=== PATIENT | female | born 1965 | race Two or more races ===

== ENCOUNTER 2021-08-12 00:35 | Inpatient (IN) | payer MEDICAID, OTHER ==
[~2021-08-12] VITALS: Ht 170.2 cm; Wt 76.2 kg
[2021-08-12 01:35] LABS: Albumin 3.7 g/dL (3.4-5.0); Basophils # (auto) 0 10 ^3/uL (0-0.2); Basophils % (auto) 0.2 % (0.0-2.0); Calcium 8.5 mg/dL (8.5-10.1); Eosinophils # (auto) 0 10 ^3/uL (0-0.8); Eosinophils % (auto) 0.6 % (0.0-7.0); Hematocrit 41.2 % (36.0-46.0); Hemoglobin 13.5 g/dL (12.2-16.2); Lymphocytes # (auto) 0.6 10 ^3/uL (0.4-5.4); Mean Corpuscular Hemoglobin 29.2 pg (28.0-32.0); Mean Corpuscular Hgb Conc. 32.9 g/dL (32.0-36.0); Mean Corpuscular Volume 88.9 fL (80.0-100.0); Monocytes # (auto) 0.3 10 ^3/uL (0-1.3); Monocytes % (auto) 6.6 % (0.0-12.0); Neutrophils # (auto) 3.6 10 ^3/uL (1.6-8.6); Neutrophils % (auto) 78.6 % (37.0-80.0); Nucleated Red Blood Cells % 0.2 %; Potassium 3.7 mmol/L (3.5-5.1); Red Blood Cells 4.63 10^6/uL (4.0-5.20); White Blood Cell 4.5 10^3/uL (4.4-10.8)
[2021-08-12 01:40] LABS: BUN/Creatinine Ratio 10.1; Bilirubin, Total 0.4 mg/dL (0.2-1.0); Total Protein 6.9 g/dL (6.4-8.2)
[2021-08-12] MEDS ORDERED: ONDANSETRON HCL 4 MG/2 ML VIAL IV PRN (06:00)
[2021-08-12] MEDS ORDERED: MORPHINE SULFATE 4 MG/ML SYR/VIAL IV PRN (06:00)
[2021-08-12] MEDS ORDERED: ACETAMINOPHEN 325 MG TAB PO PRN (06:00)
[2021-08-12] MEDS ORDERED: SODIUM CHLOR 0.9% PF (SALINE LOCK) 10ML VIAL/SYR IV SCH (06:00)
[2021-08-12] MEDS ORDERED: DOCUSATE SOD 100 MG CAP PO PRN (06:00)
[2021-08-12] MEDS ORDERED: HYDROcodone-ACET 5/325MG TAB PO PRN (06:00)
[2021-08-12] MEDS ORDERED: ALBUTEROL SULF HFA 90MCG INH 200DOSE IN PRN (06:45)
[2021-08-12] MEDS ORDERED: MORPHINE SULFATE INJECTION 2 MG/ML SYRG IV PRN ×2 (06:45→07:30)
[2021-08-12] MEDS ORDERED: NITROGLYCERIN 0.4 MG SL TAB SL PRN (06:45)
[2021-08-12 07:03] LABS: Basophils # (auto) 0 10 ^3/uL (0-0.2); Basophils % (auto) 0.4 % (0.0-2.0); Eosinophils # (auto) 0 10 ^3/uL (0-0.8); Eosinophils % (auto) 0.4 % (0.0-7.0); Hematocrit 39.2 % (36.0-46.0); Hemoglobin 13.2 g/dL (12.2-16.2); Lymphocytes # (auto) 0.7 10 ^3/uL (0.4-5.4); Lymphocytes % (auto) 23.4 % (10.0-50.0); Mean Corpuscular Hgb Conc. 33.7 g/dL (32.0-36.0); Mean Corpuscular Volume 89.1 fL (80.0-100.0); Monocytes # (auto) 0.3 10 ^3/uL (0-1.3); Monocytes % (auto) 9.2 % (0.0-12.0); Neutrophils % (auto) 66.6 % (37.0-80.0); Nucleated Red Blood Cells % 0.2 %; Red Cell Distribution Width 13.3 % (11.8-14.3)
[2021-08-12 07:15] LABS: Albumin 3.7 g/dL (3.4-5.0); Calcium 8.4 mg/dL (8.5-10.1)
[2021-08-12 07:21] LABS: BUN/Creatinine Ratio 9.8; Bilirubin, Total 0.3 mg/dL (0.2-1.0); Total Protein 6.8 g/dL (6.4-8.2)
[2021-08-12 09:30] VITALS: BP 132/70
[2021-08-12] MEDS ORDERED: ENOXAPARIN SOD 40 MG/0.4 ML SYRINGE SC SCH (10:00)
[2021-08-12] MEDS ORDERED: BUDESONIDE (INHALATION) 180 MCG IH IN SCH (10:00)
[2021-08-12] MEDS ORDERED: MULTIPLE VITAMIN TAB PO SCH (10:00)
[2021-08-12] MEDS ORDERED: ASPirin 81 mg TAB PO SCH (10:00)
[2021-08-12] MEDS ORDERED: FAMOTIDINE (10MG/ML) 2ML VL IV SCH (10:00)
[2021-08-12] MEDS ORDERED: ZINC SULFATE 220mg CAP or TAB PO SCH (10:00)
[2021-08-12] MEDS ORDERED: ASCORBIC ACID 500 MG TAB PO SCH (10:00)
[2021-08-12] MEDS ORDERED: CHOLECALCIFEROL (VITD3) 1,000UNIT=25mCg TAB PO SCH (10:00)
[2021-08-12] MEDS ORDERED: AZITHROMYCIN 500MG/ 250ML 250 ML IV SCH (10:00)
[2021-08-12] MEDS ORDERED: LOP2C PO (10:52)
[2021-08-12] MEDS ORDERED: ACET-1156 PO (10:52)
[2021-08-12] MEDS ORDERED: CHOL20007 PO (10:52)
[2021-08-12] MEDS ORDERED: ASCO500T11 PO (10:52)
[2021-08-12] MEDS ORDERED: CYAN1TAB11 PO (10:52)
[2021-08-12 12:29] VITALS: BP 130/72
[2021-08-12] MEDS ORDERED: AZITTAB PO (16:25)
[2021-08-12] MEDS ORDERED: ALBUAER3 IN (16:25)
[2021-08-12 16:51] VITALS: BP 130/72
[2021-08-12 17:00] VITALS: BP 132/72
== END 2021-08-12 18:00 | disposition home or self-care (01) | DRG 137 ==
LOC: ER 00:35 → OVERFLOW 06:41 → EAST 10:16
PROVIDERS: ADMIT Nurse Practitioner Family; ATTEND Internal Medicine
DX: U07.1 COVID-19 (principal); J12.82 Pneumonia due to coronavirus disease 2019; R07.89 Other chest pain; Z88.8 Allergy status to other drugs, medicaments and biological substances
CPT/HCPCS: 36415; 71045; 80053; 80061; 83036; 83735; 83880; 84484; 85025; 87426; 93005; 96365; 96375; G0378; J2405; J3490

== ENCOUNTER 2021-08-13 18:19 | Inpatient (IN) | payer MEDICAID ==
[~2021-08-13] VITALS: Ht 170.2 cm; Wt 79.5 kg
[~2021-08-13 18:19] MED LIST: ALBUAER3 IN; ASCO500T11 PO; AZITTAB PO; CHOL20007 PO; CYAN1TAB11 PO; LOP2C PO
[2021-08-13] MEDS ORDERED: SODIUM CHLORIDE 0.9% 1,000 ML IV ONE (19:00)
[2021-08-13] MEDS ORDERED: ONDANSETRON HCL 4 MG/2 ML VIAL IV ONE (19:00)
[2021-08-13 20:12] LABS: Basophils # (auto) 0.1 10 ^3/uL (0-0.2); Basophils % (auto) 1.2 % (0.0-2.0); Eosinophils # (auto) 0 10 ^3/uL (0-0.8); Eosinophils % (auto) 0.4 % (0.0-7.0); Hematocrit 41.8 % (36.0-46.0); Lymphocytes # (auto) 0.4 10 ^3/uL (0.4-5.4); Lymphocytes % (auto) 8.2 % (10.0-50.0); Mean Corpuscular Hemoglobin 29.8 pg (28.0-32.0); Mean Corpuscular Hgb Conc. 33.4 g/dL (32.0-36.0); Mean Corpuscular Volume 89.2 fL (80.0-100.0); Monocytes # (auto) 0.3 10 ^3/uL (0-1.3); Monocytes % (auto) 5.7 % (0.0-12.0); Neutrophils # (auto) 4.2 10 ^3/uL (1.6-8.6); Neutrophils % (auto) 84.5 % (37.0-80.0); Nucleated Red Blood Cells % 0.1 %; Red Blood Cells 4.69 10^6/uL (4.0-5.20); Red Cell Distribution Width 13.3 % (11.8-14.3); White Blood Cell 4.9 10^3/uL (4.4-10.8)
[2021-08-13 20:29] LABS: Albumin 3.7 g/dL (3.4-5.0); Calcium 8.7 mg/dL (8.5-10.1); Potassium 3.8 mmol/L (3.5-5.1)
[2021-08-13 20:35] LABS: BUN/Creatinine Ratio 8.8; Bilirubin, Total 0.4 mg/dL (0.2-1.0); CRP High Sensitivity 0.51 mg/dL (< 0.3); Total Protein 7.2 g/dL (6.4-8.2)
[2021-08-13 22:51] LABS: Urine Bacteria NONE SEEN /hpf (None Seen); Urine Blood TRACE /uL (Negative); Urine Mucus FEW (None Seen); Urine Specific Gravity 1.024 (1.001-1.035); Urine WBC 1 /hpf (0 - 5)
[2021-08-14] MEDS ORDERED: METOCLOPRAMIDE HCL 5MG/ml INJ 2ml VIAL IV ONE (00:30)
[2021-08-14] MEDS ORDERED: ACETAMINOPHEN 325 MG TAB PO ONE (01:45)
[2021-08-14] MEDS ORDERED: DOCUSATE SOD 100 MG CAP PO PRN (02:15)
[2021-08-14] MEDS ORDERED: MORPHINE SULFATE 4 MG/ML SYR/VIAL IV PRN (02:15)
[2021-08-14] MEDS ORDERED: ACETAMINOPHEN 325 MG TAB PO PRN (02:15)
[2021-08-14] MEDS ORDERED: AZITHROMYCIN 500MG/ 250ML 250 ML IV ONE (02:15)
[2021-08-14] MEDS ORDERED: cefTRIAXone 1GM/50ML D5W 50 ML IV ONE (02:15)
[2021-08-14] MEDS ORDERED: NITROGLYCERIN 0.4 MG SL TAB SL PRN (02:45)
[2021-08-14] MEDS ORDERED: MORPHINE SULFATE INJECTION 2 MG/ML SYRG IV PRN (02:45)
[2021-08-14] MEDS: DexAMETHasone SOD PHOS 10MG/1ML VIAL INJ IV SCH (03:34)
[2021-08-14 03:59] LABS: Albumin 3.4 g/dL (3.4-5.0); Potassium 3.6 mmol/L (3.5-5.1)
[2021-08-14 04:01] LABS: BUN/Creatinine Ratio 8.7
[2021-08-14 04:04] LABS: Bilirubin, Total 0.4 mg/dL (0.2-1.0); Total Protein 6.4 g/dL (6.4-8.2)
[2021-08-14] MEDS: D5W/SOD CHLO 0.9% 1,000 ML IV SCH ×2 (05:30→18:32)
[2021-08-14 07:01] LABS: Basophils # (auto) 0 10 ^3/uL (0-0.2); Basophils % (auto) 0.1 % (0.0-2.0); Eosinophils # (auto) 0 10 ^3/uL (0-0.8); Hematocrit 37.9 % (36.0-46.0); Hemoglobin 12.6 g/dL (12.2-16.2); Lymphocytes # (auto) 0.5 10 ^3/uL (0.4-5.4); Lymphocytes % (auto) 11.4 % (10.0-50.0); Mean Corpuscular Hemoglobin 29.7 pg (28.0-32.0); Mean Corpuscular Hgb Conc. 33.2 g/dL (32.0-36.0); Mean Corpuscular Volume 89.3 fL (80.0-100.0); Monocytes # (auto) 0.2 10 ^3/uL (0-1.3); Monocytes % (auto) 3.8 % (0.0-12.0); Neutrophils # (auto) 3.6 10 ^3/uL (1.6-8.6); Neutrophils % (auto) 84.7 % (37.0-80.0); Nucleated Red Blood Cells % 0.1 %; Red Blood Cells 4.24 10^6/uL (4.0-5.20); Red Cell Distribution Width 12.8 % (11.8-14.3); White Blood Cell 4.3 10^3/uL (4.4-10.8)
[2021-08-14] MEDS: MULTIPLE VITAMIN TAB PO SCH (09:38)
[2021-08-14] MEDS: CHOLECALCIFEROL (VITD3) 2,000 UNIT CAP/TAB PO SCH (09:38)
[2021-08-14] MEDS: FAMOTIDINE (10MG/ML) 2ML VL IV SCH (09:38)
[2021-08-14] MEDS: ENOXAPARIN SOD 40 MG/0.4 ML SYRINGE SC SCH (09:38)
[2021-08-14] MEDS: ZINC SULFATE 220mg CAP or TAB PO SCH (09:38)
[2021-08-14] MEDS: ASCORBIC ACID 500 MG TAB PO SCH ×2 (09:38→21:19)
[2021-08-14] MEDS: BUDESONIDE (INHALATION) 180 MCG IH IN SCH ×2 (10:00→22:00)
[2021-08-14] MEDS ORDERED: PANTOPRAZOLE 40 MG/10 ML VIAL INJ IV ONE (11:15)
[2021-08-14 17:00] VITALS: BP 122/81
[2021-08-14 17:27] VITALS: BP 122/81
[2021-08-14] MEDS: ONDANSETRON HCL 4 MG/2 ML VIAL IV PRN (18:49)
[2021-08-14 22:00] VITALS: BP 127/80
[2021-08-15] MEDS: D5W/SOD CHLO 0.9% 1,000 ML IV SCH ×2 (00:11→20:45)
[2021-08-15 05:00] VITALS: BP 124/71
[2021-08-15 07:09] LABS: Basophils # (auto) 0 10 ^3/uL (0-0.2); Basophils % (auto) 0.2 % (0.0-2.0); Eosinophils # (auto) 0 10 ^3/uL (0-0.8); Eosinophils % (auto) 0.1 % (0.0-7.0); Hemoglobin 12.3 g/dL (12.2-16.2); Lymphocytes # (auto) 0.7 10 ^3/uL (0.4-5.4); Lymphocytes % (auto) 14.3 % (10.0-50.0); Mean Corpuscular Hemoglobin 29.7 pg (28.0-32.0); Mean Corpuscular Hgb Conc. 33.2 g/dL (32.0-36.0); Mean Corpuscular Volume 89.6 fL (80.0-100.0); Monocytes # (auto) 0.4 10 ^3/uL (0-1.3); Monocytes % (auto) 7.9 % (0.0-12.0); Neutrophils % (auto) 77.5 % (37.0-80.0); Nucleated Red Blood Cells % 0.1 %; Red Blood Cells 4.12 10^6/uL (4.0-5.20); Red Cell Distribution Width 13.1 % (11.8-14.3); White Blood Cell 5.2 10^3/uL (4.4-10.8)
[2021-08-15 07:23] LABS: Potassium 3.1 mmol/L (3.5-5.1)
[2021-08-15 07:32] LABS: BUN/Creatinine Ratio 11.4; Bilirubin, Total 0.2 mg/dL (0.2-1.0); Calcium 8.2 mg/dL (8.5-10.1); Total Protein 5.8 g/dL (6.4-8.2)
[2021-08-15 09:00] VITALS: BP 113/67
[2021-08-15] MEDS: cefTRIAXone 1GM/50ML D5W 50 ML IV SCH ×2 (09:00→10:28)
[2021-08-15] MEDS: DexAMETHasone SOD PHOS 10MG/1ML VIAL INJ IV SCH (10:15)
[2021-08-15] MEDS: FAMOTIDINE (10MG/ML) 2ML VL IV SCH ×2 (10:16→22:14)
[2021-08-15] MEDS: PANTOPRAZOLE 40 MG/10 ML VIAL INJ IV SCH (10:16)
[2021-08-15] MEDS: MULTIPLE VITAMIN TAB PO SCH (10:17)
[2021-08-15] MEDS: ASCORBIC ACID 500 MG TAB PO SCH ×2 (10:17→22:14)
[2021-08-15] MEDS: CHOLECALCIFEROL (VITD3) 2,000 UNIT CAP/TAB PO SCH (10:18)
[2021-08-15] MEDS: ENOXAPARIN SOD 40 MG/0.4 ML SYRINGE SC SCH ×2 (10:19→22:13)
[2021-08-15] MEDS: ZINC SULFATE 220mg CAP or TAB PO SCH (10:23)
[2021-08-15] MEDS: AZITHROMYCIN 500MG/ 250ML 250 ML IV SCH (11:06)
[2021-08-15] MEDS: BUDESONIDE (INHALATION) 180 MCG IH IN SCH ×2 (11:25→19:33)
[2021-08-15] MEDS: ALBUTEROL SULF HFA 90MCG INH 200DOSE IN PRN ×2 (11:25→19:33)
[2021-08-15] MEDS ORDERED: POTASSIUM CHL 20 Meq TABLET PO ONE (12:45)
[2021-08-15 13:00] VITALS: BP 111/72
[2021-08-15] MEDS: ONDANSETRON HCL 4 MG/2 ML VIAL IV PRN (14:00)
[2021-08-15 17:00] VITALS: BP 119/72
[2021-08-15 22:00] VITALS: BP 117/71
[2021-08-15] MEDS ORDERED: POTASSIUM CHL 20 Meq TABLET PO SCH (22:00)
[2021-08-16 05:00] VITALS: BP 130/71
[2021-08-16] MEDS: BUDESONIDE (INHALATION) 180 MCG IH IN SCH (06:11)
[2021-08-16] MEDS: ALBUTEROL SULF HFA 90MCG INH 200DOSE IN PRN (06:11)
[2021-08-16] MEDS: AZITHROMYCIN 500MG/ 250ML 250 ML IV SCH (09:44)
[2021-08-16] MEDS: PANTOPRAZOLE 40 MG/10 ML VIAL INJ IV SCH (09:46)
[2021-08-16] MEDS: FAMOTIDINE (10MG/ML) 2ML VL IV SCH (09:46)
[2021-08-16] MEDS: DexAMETHasone SOD PHOS 10MG/1ML VIAL INJ IV SCH (09:46)
[2021-08-16] MEDS: ZINC SULFATE 220mg CAP or TAB PO SCH (09:48)
[2021-08-16] MEDS: CHOLECALCIFEROL (VITD3) 2,000 UNIT CAP/TAB PO SCH (09:48)
[2021-08-16] MEDS: MULTIPLE VITAMIN TAB PO SCH (09:49)
[2021-08-16] MEDS: ENOXAPARIN SOD 40 MG/0.4 ML SYRINGE SC SCH (09:49)
[2021-08-16] MEDS: ASCORBIC ACID 500 MG TAB PO SCH (09:49)
[2021-08-16] MEDS ORDERED: THIAMINE HCL 100 MG TAB PO SCH (10:00)
[2021-08-16] MEDS ORDERED: cefTRIAXone 1GM/50ML D5W 50 ML IV SCH (10:00)
[2021-08-16] MEDS ORDERED: AZIT500T66 PO (11:24)
[2021-08-16] MEDS ORDERED: PRED20TA2 PO (11:24)
[2021-08-16] MEDS ORDERED: PANT40T PO (11:24)
[2021-08-16 13:00] VITALS: BP 128/70
== END 2021-08-16 16:00 | disposition home or self-care (01) | DRG 137 ==
LOC: ER 18:20 → OVERFLOW 08-14 02:43 → WEST WING 08-14 17:26
PROVIDERS: ADMIT Nurse Practitioner Family; ATTEND Family Medicine
DX: U07.1 COVID-19 (principal); J96.01 Acute respiratory failure with hypoxia; J12.82 Pneumonia due to coronavirus disease 2019; K76.0 Fatty (change of) liver, not elsewhere classified; E87.6 Hypokalemia; Z80.1 Family history of malignant neoplasm of trachea, bronchus and lung; R79.89 Other specified abnormal findings of blood chemistry; Z86.16 Personal history of COVID-19
CPT/HCPCS: 36415; 71045; 74176; 80053; 81001; 83605; 83690; 83735; 84484; 85025; 85379; 86141; 87081; 87426; 94640; 96361; 96374; 96375; C9113; G0378; J0696; J1100; J2405; J3490; J7042

== ENCOUNTER 2021-08-18 08:54 | Emergency (ER) | payer MEDICAID ==
[~2021-08-18] VITALS: Ht 170.2 cm; Wt 77.1 kg
[~2021-08-18 08:54] MED LIST changes: -ALBUAER3 IN; -ASCO500T11 PO; +AZIT500T66 PO; -AZITTAB PO; -CHOL20007 PO; -CYAN1TAB11 PO; -LOP2C PO; +PANT40T PO; +PRED20TA2 PO
[2021-08-18 11:19] VITALS: BP 122/71
[2021-08-18] MEDS ORDERED: FAMOTIDINE 20 MG TAB PO ONE (12:00)
[2021-08-18] MEDS ORDERED: ALUM & MAG HYDROX-SIMETH LIQ(MAALOX) 30 ML PO ONE (12:00)
[2021-08-18] MEDS ORDERED: ONDANSETRON ODT 4 MG TAB PO ONE (12:00)
[2021-08-18] MEDS ORDERED: LIDOCAINE VISCOUS 2% 15ML UD PO ONE (12:00)
== END 2021-08-18 13:20 | disposition home or self-care (01) ==
LOC: ER 08:54
DX: U09.9 Post COVID-19 condition, unspecified (principal); R63.0 Anorexia; Z68.26 Body mass index [BMI] 26.0-26.9, adult
CPT/HCPCS: 99284; Q0162

== ENCOUNTER 2022-10-20 09:16 | Emergency (ER) | payer MEDICAID ==
[~2022-10-20] VITALS: Ht 170.2 cm; Wt 76.1 kg
[2022-10-20 09:59] LABS: Urine Bacteria FEW /hpf (None Seen); Urine Blood Negative /uL (Negative); Urine Specific Gravity 1.002 (1.001-1.035); Urine WBC <1 /hpf (0 - 5)
[2022-10-20 10:23] LABS: Basophils # (auto) 0 10 ^3/uL (0-0.2); Basophils % (auto) 0.5 % (0.0-2.0); Eosinophils # (auto) 0.2 10 ^3/uL (0-0.8); Eosinophils % (auto) 2.4 % (0.0-7.0); Hematocrit 45.5 % (36.0-46.0); Hemoglobin 15.1 g/dL (12.2-16.2); Lymphocytes # (auto) 1.6 10 ^3/uL (0.4-5.4); Lymphocytes % (auto) 21.3 % (10.0-50.0); Mean Corpuscular Hemoglobin 29.8 pg (28.0-32.0); Mean Corpuscular Hgb Conc. 33.1 g/dL (32.0-36.0); Monocytes # (auto) 0.4 10 ^3/uL (0-1.3); Monocytes % (auto) 4.8 % (0.0-12.0); Neutrophils # (auto) 5.3 10 ^3/uL (1.6-8.6); Nucleated Red Blood Cells % 0.1 %; Red Blood Cells 5.05 10^6/uL (4.0-5.20); Red Cell Distribution Width 13.1 % (11.8-14.3); White Blood Cell 7.5 10^3/uL (4.4-10.8)
[2022-10-20 10:38] LABS: Albumin 4.2 g/dL (3.4-5.0); BUN/Creatinine Ratio 9.4 (10.0-20.0); Bilirubin, Total 0.4 mg/dL (0.2-1.0); Calcium 9.7 mg/dL (8.5-10.1); Total Protein 7.3 g/dL (6.4-8.2)
[2022-10-20 15:59] VITALS: BP 138/97
== END 2022-10-20 16:07 | disposition home or self-care (01) ==
LOC: ER 09:16
DX: M54.12 Radiculopathy, cervical region (principal); R07.89 Other chest pain; Z90.49 Acquired absence of other specified parts of digestive tract; Z90.710 Acquired absence of both cervix and uterus; Z79.2 Long term (current) use of antibiotics; Z79.899 Other long term (current) drug therapy; Z88.5 Allergy status to narcotic agent
CPT/HCPCS: 36415; 71045; 80053; 81001; 82962; 84484; 85025; 93005

== ENCOUNTER 2023-07-14 10:51 | Emergency (ER) | payer BC, MEDICAID ==
[~2023-07-14] VITALS: Ht 170.2 cm; Wt 71.4 kg
[2023-07-14 11:40] LABS: Basophils # (auto) 0 10 ^3/uL (0-0.2); Basophils % (auto) 0.1 % (0.0-2.0); Eosinophils # (auto) 0.1 10 ^3/uL (0-0.8); Eosinophils % (auto) 0.6 % (0.0-7.0); Hematocrit 45.6 % (36.0-46.0); Lymphocytes # (auto) 1.4 10 ^3/uL (0.4-5.4); Lymphocytes % (auto) 14.6 % (10.0-50.0); Mean Corpuscular Hemoglobin 29.5 pg (28.0-32.0); Mean Corpuscular Hgb Conc. 32.9 g/dL (32.0-36.0); Mean Corpuscular Volume 89.7 fL (80.0-100.0); Monocytes # (auto) 0.4 10 ^3/uL (0-1.3); Monocytes % (auto) 4.4 % (0.0-12.0); Neutrophils # (auto) 7.9 10 ^3/uL (1.6-8.6); Neutrophils % (auto) 80.3 % (37.0-80.0); Red Blood Cells 5.08 10^6/uL (4.0-5.20); Red Cell Distribution Width 13.2 % (11.8-14.3); White Blood Cell 9.9 10^3/uL (4.4-10.8)
[2023-07-14 12:00] LABS: Alanine Aminotransferase 22 U/L (7-40); Albumin 5.2 g/dL (3.2-4.8); Alkaline Phosphatase 97 U/L (46-116); Anion Gap 7 (5-15); Aspartate Aminotransferase 22 U/L (13-40); BUN/Creatinine Ratio 7.4 (10.0-20.0); Bilirubin, Direct 0.2 mg/dL (<0.3); Bilirubin, Total 0.8 mg/dL (0.2-1.0); Blood Urea Nitrogen 7 mg/dL (9-23); Calcium 10.4 mg/dL (8.5-10.1); Carbon Dioxide 28 mmol/L (20-30); Chloride 103 mmol/L (98-107); Glucose 99 mg/dL (74-106); Potassium 3.8 mmol/L (3.5-5.1); Sodium 138 mmol/L (136-145); Total Protein 7.6 g/dL (5.7-8.2)
[2023-07-14 12:46] LABS: Magnesium 2.1 mg/dL (1.6-2.6)
[2023-07-14 13:33] VITALS: BP 150/60; PULSE 85; RESP 19; TEMP 98.4; O2SAT 95
== END 2023-07-14 13:38 | disposition home or self-care (01) ==
LOC: ER 10:51
DX: M62.81 Muscle weakness (generalized) (principal); Z13.89 Encounter for screening for other disorder; Z98.890 Other specified postprocedural states; Z88.8 Allergy status to other drugs, medicaments and biological substances; Z79.899 Other long term (current) drug therapy
CPT/HCPCS: 36415; 80048; 80076; 82962; 83690; 83735; 85025; 93005

== ENCOUNTER 2025-06-25 04:38 | Emergency (ER) | payer BC, MEDICAID ==
[~2025-06-25] VITALS: Ht 170.2 cm; Wt 62.0 kg
--- NOTE | 2025-06-25 06:33 | ED.PDOC ---
Back pain HPI HPI Comments A 59 YEARS OLD FEMALE PRESENTS TO THE ED WITH COMPLAINT OF LOWER BACK PAIN. PT STATES SHE WAS BENDING OVER TO CLINICAL INVESTIGATOR SOMETHING 2 DAYS AGO. WHEN SHE GOT UP, SHE STARTED HAVING LOWER BACK PAIN WITH MUSCLE SPASM. LOWER BACK PAIN RADIATES TO BILATERAL LOWER LEGS WITH TINGLING SENSATION. PT DENIES FALL INJURY AND OTHER BODY INJURY. MOVEMENT AND PHYSICAL ACTIVITY INCREASES LOWER BACK PAIN. PATIENT DENIES FEVER, CHILLS, SHORTNESS OF BREATH, CHEST PAIN, ABDOMINAL PAIN, NAUSEA, VOMITING, HEADACHE, OR OTHER COMPLAINTS. NO OTHER SYMPTOMS OR MODIFYING FACTORS AT THIS TIME. PATIENT IS ALERT, ORIENTED X 4, AND HAS STEADY GAIT. Chief Complaint: Back Pain Time Seen by MD: 06:21 Primary Care Provider: UNKNOWN Reviewed Notes: Nurses Notes, Medications, Allergies Allergies: Coded Allergies: Hydrocodone (Verified Allergy, Mild, hives, 08/12/21) Home Meds Active Scripts Methocarbamol (Methocarbamol) 750 Mg Tab, 750 MG PO BID, #20 TAB Prov:MARKOS CARTY 06/25/25 Ibuprofen (Ibuprofen) 800 Mg Tab, 1 TAB PO TID, #30 TAB Prov:MARKOS CARTY 06/25/25 Pantoprazole Sodium Sesquihydr (Pantoprazole Sodium) 40 Mg Tab, 40 MG PO DAILY for 15 Days, #15 TAB Prov:SAVANNAH KWAN MD 08/16/21 Prednisone (Prednisone) 20 Mg Tab, 20 MG PO DAILY, #7 MG Prov:SAVANNAH KWAN MD 08/16/21 Azithromycin (Azithromycin) 500 Mg Tab, 1 TAB PO DAILY, #7 TAB Prov:SAVANNAH KWAN MD 08/16/21 Information Source: Patient Mode of Arrival: Ambulatory Timing: Days Duration: Since onset, Days Location of Back pain: (B) Lower back Radiates to: Posterior: (B) Buttocks, (B) Thigh Radiates to: Medial: (B) Buttocks, (B) Thigh Radiates to: Lateral: (B) Buttocks, (B) Thigh Severity: Moderate Prehospital treatment: None Quality: Aching, Burning, Cramping, Sharp Onset: Bending Circumstance: Other History of: Other Modifying Factors: Movement, Twisting, Walking Associated signs and symptoms: None Past Medical History PAST MEDICAL HISTORY: Denies Surgical History: Cholecystectomy, Hysterectomy ADDICTION NURSE History: No Pertinent ADDICTION NURSE History Family History Family History: Reviewed,noncontributory to illness Social History Smoker: Non-Smoker Alcohol: Denies ETOH Use Drugs: Denies Drug Use Lives In: Home Constitutional: denies: chills, diaphoresis, fatigue, fever, malaise, sweats, weakness, others EENTM: denies: blurred vision, double vision, ear bleeding, ear discharge, ear drainage, ear pain, ear ringing, eye pain, eye redness, hearing loss, mouth pain, mouth swelling, nasal discharge, nose bleeding, nose congestion, nose pain, photophobia, tearing, throat pain, throat swelling, voice changes, others Respiratory: denies: cough, hemoptysis, orthopnea, SOB at rest, shortness of breath, SOB with excertion, stridor, wheezing, others Cardiovascular: denies: chest pain, dizzy spells, diaphoresis, Dyspnea on exertion, edema, irregular heart beat, left arm pain, lightheadedness, palpitations, PND, syncope, others Gastrointestinal: denies: abdomen distended, abdominal pain, blood streaked bowels, constipated, diarrhea, dysphagia, difficulty swallowing, hematemesis, melena, nausea, poor appetite, poor fluid intake, rectal bleeding, rectal pain, vomiting, others Genitourinary: denies: abnormal vagina bleeding, burning, dyspareunia, dysuria, flank pain, frequency, hematuria, incontinence, pain, , vagina discharge, urgency, others Neurological: denies: dizziness, fainting, headache, left sided numbness, left sided weakness, numbness, paresthesia, pre-existing deficit, right sided numbness, right sided weakness, seizure, speech problems, tingling, tremors, weakness, others Musculoskeletal: reports: back pain, muscle pain; denies: gout, joint pain, joint swelling, muscle stiffness, neck pain, others Integumetry: denies: bruises, change in color, change in hair/nails, dryness, laceration, lesions, lumps, rash, wounds, others Hematologic/Lymphatic: denies: anemia, blood clots, easy bleeding, easy bruising, swollen glands, others Endocrine: denies: excessive hunger, excessive sweating, excessive thirst, excessive urination, flushing, intolerance to cold, intolerance to heat, unexplained weight gain, unexplained weight loss, others Psychiatric: denies: anxiety, bipolar disorder, depression, hopeless, panic disorder, schizophrenia, sleepless, suicidal, others All Other Systems: Reviewed and Negative Physical Exam General Appearance: No Apparent Distress, Normal HEENT: Normal ENT Inspection, PERRL/EOMI, Pharynx Normal, TMs Normal Neck: Full Range of Motion, Non-Tender, Normal, Normal Inspection Respiratory: Chest Non-Tender, Lungs Clear, No Accessory Muscle Use, No Respiratory Distress, Normal Breath Sounds Cardiovascular: No Edema, No JVD, No Murmur, No Gallop, Normal Peripheral Pulses, Regular Rate/Rhythm Breast Exam: Deferred Gastrointestinal: No Organomegaly, Non Tender, No Pulsatile Mass, Normal Bowel Sounds, Soft Genitalia: Deferred Pelvic: Deferred Rectal: Deferred Extremities: No calf tenderness, Normal capillary refill, Normal inspection, No rmal range of motion, Non-tender, No pedal edema Musculoskeletal : Location: Bilateral Extremity Location: Back Apperance: Tenderness: Moderate (TENDERNESS AND MUSCLE SPASM ON LOWER BACK, NO BONY TENDERNESS AND SWELLING OF LOWER BACK, NO DEFORMITY. ) Neurologic: Alert, medical director II-XII nml as Tested, No Motor Deficits, Normal Affect, Normal Mood, No Sensory Deficits Cerebellar Function: Normal Reflexes: Normal Skin: Dry, Normal Color, Warm Peripheral Pulses: 2+ carotid (R), 2+ carotid (L), 2+ dorsalis pedis (R), 2+ dorsalis pedis (L) Lymphatic: No Adenopathy Was a procedure done? Was a procedure done?: No Back Pain Differential Dx Differential Diagnosis: Fracture, Musculoskeletal Pain, Strain, Urolithiasis, Other (LOWER BACK PAIN WITH SCIATICA ) X-Ray, Labs, Meds, VS Vital Signs Date Time Temp Pulse Resp B/P (MAP) Pulse Ox O2 Delivery O2 Flow Rate FiO2 06/25/25 06:44 98.0 85 18 160/84 (109) 98 98.0 06/25/25 04:39 98.0 80 18 169/98 97 98.0 Current Medications Medications (Trade) Dose Ordered Sig/Calixto Route Start Time Stop Time Status Last Admin Ketorolac Tromethamine (Toradol Injection) 60 mg ONCE ONCE IM 06/25/25 06:45 06/25/25 06:46 DC 06/25/25 06:57 PATIENT: RHONDAPAYALCCT: [id number]: [id number] : 1965 LOC: ER ROOM / BED: / AGE / SEX: 59 / F ADM STATUS: [facility] ER SERVICE [id number] ORDERING PHYSICIAN: SESAR MEDELLIN PROCEDURE(s): LUMB2 - LUMBAR SPINE 3 VIEW REASON: lumbar back pain ORDER NUMBER(s): [id number], ACCESSION NUMBER(s): [id number] CLINICAL INFORMATION: Lumbar back pain. TECHNIQUE: 3 views of the lumbar spine were obtained. COMPARISON: None FINDINGS: Mild grade 1 anterolisthesis of L3 on L4. Vertebral body heights are maintained. Posterior elements are intact. No acute fracture. [id number] disc space narrowing at L3-L4, L4-L5, and L5-S1 with mild endplate sclerosis. There is mild endplate spurring at L3-L4. Partially visualized degenerative disc disease in the thoracic spine with moderate to severe disc space narrowing at T11-T12 with associated endplate sclerosis and endplate spurring. Surgical clips are seen in the right upper abdomen, likely from prior cholecystectomy. Paraspinal soft tissues are grossly unremarkable. IMPRESSION: 1. Mild grade 1 anterolisthesis of L3 on L4. 2. Degenerative disc disease as described above. ATED BY: KLEVER CALVILLO DO DICTATED DATE/TIME: 06/25/25807 SIGNED BY: KLEVER CALVILLO DO SIGNED DATE/TIME: 06/25/25807 CC: X-Ray, Labs, Meds, VS Comment COURSE: EXTERNAL MEDICAL RECORDS REVIEWED: [NONE] INDEPENDENT HISTORIANS: [NONE] SOCIAL DETERMINANTS OF HEALTH: [NONE] LABS ORDERED: NONE REVIEWED AND INTERPRETED RESULTS: NONE IMAGING ORDERED: LS-SPINE TREATMENTS ORDERED: TORADOL 60MG IM PROCEDURES PERFORMED: NONE CRITICAL CARE TIME: NONE I HAVE DISCUSSED THE PATIENT WITH THE ATTENDING PHYSICIAN DR. FLORES AND HE AGREES WITH THE PATIENT'S PLAN OF CARE AND DISPOSITION. BASED ON HISTORY OF PRESENT ILLNESS, AND PHYSICAL EXAM, PATIENT WILL BE DISCHARGED HOME. DISCUSSED PLAN FOR DISCHARGE HOME WITH RX [MOTRIN AND ROBAXIN ]. MEDICATION WARNINGS GIVEN. SHARED DECISION MAKING: DISCUSSED WITH PATIENT THAT THEIR WORKUP WAS NORMAL. PATIENT INSTRUCTED TO FOLLOW UP WITH PRIMARY CARE PROVIDER IN 1-2 DAYS FOR RE- EVALUATION OF SYMPTOMS. PATIENT VERBALIZES UNDERSTANDING TO RETURN TO ED FOR NEW OR WORSENING SYMPTOMS OR IF FOLLOW UP WITH PCP CANNOT BE OBTAINED. PATIENT FEELS COMFORTABLE GOING HOME AT THIS TIME. ALL QUESTIONS ADDRESSED AT TIME OF DISCHARGE. Time of 1ST Reevaluation: 08:00 Reevaluation 1ST: Improved Patient Education/Counseling: Diagnosis, Treatment, Need For Follow Up Family Education/Counseling: Diagnosis, Treatment, Need For Follow Up Medical Screening: No EMC Exist At This Time SEPSIS Sepsis Screen Date sepsis recognized/suspect: Jun 25, 2025 Time Sepsis recognized/suspect: 442 Recent Procedure: No On Antibiotic Therapy: No Respiratory Rate >20: No Heart Rate >90: No Temp<36 C (96.8 F) or >38.3 C: No SBP <90 or MAP <65 mmHG: No New Acute Mental Status Change: No Is the patient on CPAP, BIPAP,: No Physician Orders Lumbar Spine 3 View (06/25/25 04:53) Vital Signs Date Time Temp Pulse Resp B/P (MAP) Pulse Ox O2 Delivery O2 Flow Rate FiO2 06/25/25 06:44 98.0 85 18 160/84 (109) 98 98.0 06/25/25 04:39 98.0 80 18 169/98 97 98.0 Medications Medications Dose Ordered Sig/Calixto Route Start Time Stop Time Status Last Admin Dose Admin Ketorolac Tromethamine 60 mg ONCE ONCE IM 06/25/25 06:45 06/25/25 06:46 DC 06/25/25 06:57 Departure 1 Departure Time of Disposition: 08:00 Impression: Primary Impression: Low back strain Qualified Codes: S39.012A - Strain of muscle, fascia and tendon of lower back, initial encounter Additional Impressions: DDD (degenerative disc disease), lumbosacral Qualified Codes: M51.372 - Other intervertebral disc degeneration, lumbosacral region with discogenic back pain and lower extremity pain Lumbar radiculopathy Disposition: 01 HOME / SELF CARE / HOMELESS Condition: Stable Additional Instructions: F/U PCP IN 2 DAYS RECHECK. IF CONDITION BECOME WORSE, RETURN TO ED [facility]. e-Prescriptions Methocarbamol (Methocarbamol) 750 Mg Tab 750 MG PO BID, #20 TAB Prov: MARKOS CARTY 06/25/25 Ibuprofen (Ibuprofen) 800 Mg Tab 1 TAB PO TID, #30 TAB Prov: MARKOS CARTY 06/25/25 Discharged With: Self, Spouse Critical Care Note Critical Care Time?: No Stability Stability form required: MARKOS Lutz Jun 25, 2025 06:33
[2025-06-25 06:44] VITALS: BP 160/84; PULSE 85; RESP 18; TEMP 98; O2SAT 98
[2025-06-25] MEDS: KETOROLAC TROMETH 60MG/2ML VIAL IM ONE (06:57)
[2025-06-25] MEDS ORDERED: METH-1182 PO (07:16)
[2025-06-25] MEDS ORDERED: IBUP-1456 PO (07:16)
--- NOTE | 2025-06-25 08:11 | DVH ---
CLINICAL INFORMATION: Lumbar back pain. TECHNIQUE: 3 views of the lumbar spine were obtained. COMPARISON: None FINDINGS: Mild grade 1 anterolisthesis of L3 on L4. Vertebral body heights are maintained. Posterior elements are intact. No acute fracture. [id number] disc space narrowing at L3-L4, L4-L5, and L5-S1 with mild endplate sclerosis. There is mild endplate spurring at L3-L4. Partially visualized degenerative disc disease in the thoracic spine with moderate to severe disc space narrowing at T11-T12 with associated endplate sclerosis and endplate spurring. Surgical clips are seen in the right upper abdomen, likely from prior cholecystectomy. Paraspinal soft tissues are grossly unremarkable. IMPRESSION: 1. Mild grade 1 anterolisthesis of L3 on L4. 2. Degenerative disc disease as described above.
== END 2025-06-25 07:18 | disposition home or self-care (01) ==
LOC: ER 04:38
DX: S39.012A Strain of muscle, fascia and tendon of lower back, initial encounter (principal); M51.370 Other intervertebral disc degeneration, lumbosacral region with discogenic back pain only; Z88.5 Allergy status to narcotic agent; Z79.899 Other long term (current) drug therapy; Z90.49 Acquired absence of other specified parts of digestive tract; Z90.710 Acquired absence of both cervix and uterus; X58.XXXA Exposure to other specified factors, initial encounter; Y93.89 Activity, other specified; Y92.89 Other specified places as the place of occurrence of the external cause; Y99.8 Other external cause status
CPT/HCPCS: 72100; 96372; 99283; J1885